=== PATIENT | female | born 1955 | race Caucasian/White ===

== ENCOUNTER 2018-08-10 17:59 | Inpatient (IN) | payer BC, OTHER ==
--- NOTE | 2018-08-10 18:22 | C.PDOC ---
History Of Present Illness Patient is a 63 year old female, with a PMHx of diverticulosis with prior perf s/p colectomy, who presents to the ED c/o recurrent LLQ pain since last last night. Patient states that the pain is localized. TM 100. Patient denies any nausea, vomiting, diarrhea, or BRB. RECUR LLQ PAIN SINCE LAST NIGHT. HO DIVERTICULOSIS W PRIOR PERF SP COLECTOMY. PAIN LOCALIZED CONSTANT. TM 100. NO NVD. NO BRB EXAM NONTOXIC ABD SOFT +SEVERE LLQ TEND NO RG REMAINDER NEG <Karen Byrne - Last Filed: 08/10/18 18:55> History Per: Patient History/Exam Limitations: no limitations Onset/Duration Of Symptoms: Days (1) Current Symptoms Are (Timing): Still Present Location Of Pain/Discomfort: LLQ Quality Of Discomfort: "Pain" Associated Symptoms: denies: Nausea, Vomiting, Diarrhea Recent travel outside of the [place]: No Additional History Per: Patient <Karen Byrne - Last Filed: 08/10/18 18:55> <Natalie Cortes - Last Filed: 08/10/18 22:41> Time Seen by Provider: 08/10/18 18:15 Chief Complaint (Nursing): Abdominal Pain Past Medical History Reviewed: Historical Data, Nursing Documentation, Vital Signs Vital Signs: Last Vital Signs Temp 100.4 F H 08/10/18 18:07 Pulse 116 H 08/10/18 18:07 Resp 18 08/10/18 18:07 BP 175/81 H 08/10/18 18:07 Pulse Ox 95 08/10/18 18:07 - Medical History PMH: HTN, Hypercholesterolemia Surgical History: No Surg Hx Family History: States: No Known Family Hx - Social History Hx Alcohol Use: No Hx Substance Use: No - Immunization History Hx Tetanus Toxoid Vaccination: Yes Hx Influenza Vaccination: Yes Hx Pneumococcal Vaccination: No <Karen Byrne - Last Filed: 08/10/18 18:55> Vital Signs: Last Vital Signs Temp 100.4 F H 08/10/18 18:07 Pulse 116 H 08/10/18 18:07 Resp 18 08/10/18 18:07 BP 170/81 H 08/10/18 18:40 Pulse Ox 95 08/10/18 18:56 <Natalie Cortes - Last Filed: 08/10/18 22:41> Review Of Systems Except As Marked, All Systems Reviewed And Found Negative. Gastrointestinal: Positive for: Abdominal Pain (LLQ pain ). Negative for: Nausea, Vomiting, Diarrhea, Hematochezia, Hematemesis <Karen Byrne - Last Filed: 08/10/18 18:55> Physical Exam - Physical Exam Appears: Non-toxic Skin: Warm, Dry Head: Atraumatic, Normacephalic Oral Mucosa: Moist Neck: Normal ROM, Supple Chest: Symmetrical, No Deformity Cardiovascular: Rhythm Regular, No Murmur Respiratory: Other (NARD) Gastrointestinal/Abdominal: Soft, Tenderness (+SEVERE LLQ TEND), No Guarding, No Rebound Extremity: Normal ROM Neurological/Psych: Oriented x3, Normal Speech, Normal Cognition <Karen Byrne - Last Filed: 08/10/18 18:55> ED Course And Treatment - Laboratory Results Result Diagrams: 08/10/18 18:35 08/10/18 18:35 O2 Sat by Pulse Oximetry: 95 (on RA) Pulse Ox Interpretation: Normal - Radiology CXR: Interpreted by Me CXR Interpretation: Yes: No Acute Disease Progress Note: Plan: CAT A&P. CXR. EKG. Labs. Urinalysis. Omnipaque 50ml PO. Morphine 2mg IVP. Zofran INJ 4mg IVP. IV Fluids <Karen Byrne - Last Filed: 08/10/18 18:55> - Laboratory Results Result Diagrams: 08/10/18 18:35 08/10/18 18:35 Lab Results: pO2 26 mm/Hg (30-55) L 08/10/18 20:58 VBG pH 7.43 (7.32-7.43) 08/10/18 20:58 VBG pCO2 42 mmHg (40-60) 08/10/18 20:58 VBG HCO3 26.1 mmol/L 08/10/18 20:58 VBG Total CO2 29.2 mmol/L (22-28) H 08/10/18 20:58 VBG O2 Sat (Calc) 47.3 % (40-65) 08/10/18 20:58 VBG Base Excess 3.2 mmol/L (0.0-2.0) H 08/10/18 20:58 VBG Potassium 3.3 mmol/L (3.6-5.2) L 08/10/18 20:58 Sodium 138.0 mmol/l (132-148) 08/10/18 20:58 Chloride 103.0 mmol/L (98-107) 08/10/18 20:58 Glucose 106 mg/dl (65-105) H 08/10/18 20:58 Lactate 1.3 mmol/L (0.7-2.1) 08/10/18 20:58 Total Bilirubin 0.7 mg/dL (0.2-1.3) 08/10/18 18:35 AST 85 U/L (14-36) H 08/10/18 18:35 ALT 84 U/L (9-52) H 08/10/18 18:35 Alkaline Phosphatase 128 U/L (38-126) H 08/10/18 18:35 Total Protein 7.6 g/dL (6.3-8.3) 08/10/18 18:35 Albumin 4.5 g/dL (3.5-5.0) 08/10/18 18:35 Globulin 3.1 gm/dL (2.2-3.9) 08/10/18 18:35 Albumin/Globulin Ratio 1.4 (1.0-2.1) 08/10/18 18:35 Lipase 59 U/L (23-300) 08/10/18 18:35 Urine Color Yellow (YELLOW) 08/10/18 18:35 Urine Clarity Hazy (Clear) 08/10/18 18:35 Urine pH 6.0 (5.0-8.0) 08/10/18 18:35 Ur Specific [place] 1.008 (1.003-1.030) 08/10/18 18:35 Urine Protein Negative mg/dL (NEGATIVE) 08/10/18 18:35 Urine Glucose (UA) Normal mg/dL (Normal) 08/10/18 18:35 Urine Ketones Negative mg/dL (NEGATIVE) 08/10/18 18:35 Urine Blood 3+ (NEGATIVE) H 08/10/18 18:35 Urine Nitrate Negative (NEGATIVE) 08/10/18 18:35 Urine Bilirubin Negative (NEGATIVE) 08/10/18 18:35 Urine Urobilinogen Normal mg/dL (0.2-1.0) 08/10/18 18:35 Ur Leukocyte Esterase 3+ [place]/uL (Negative) H 08/10/18 18:35 Urine WBC (Auto) 36 /hpf (0-5) H 08/10/18 18:35 Urine RBC (Auto) 15 /hpf (0-3) H 08/10/18 18:35 Ur Squamous Epith Cells 2 /hpf (0-5) 08/10/18 18:35 Urine Bacteria Few (<OCC) H 08/10/18 18:35 <Natalie Cortes - Last Filed: 08/10/18 22:41> Progress - Data Reviewed Data Reviewed: Lab, Diagnostic imaging, EKG, Old records <Karen Byrne - Last Filed: 08/10/18 18:55> Disposition - Disposition Disposition Time: 19:00 <Karen Byrne - Last Filed: 08/10/18 18:55> Discussed With : Jerry Ponce Comment: acceptd the pt on his service and took over the care at 10:40 PM Doctor Will See Patient In The: Hospital Counseled Patient/Family Regarding: Studies Performed, Diagnosis - POA Present On Arrival: Poor Glycemic Control <Natalie Cortes - Last Filed: 08/10/18 22:41> - Disposition Disposition: HOSPITALIZED Condition: GUARDED Forms: [employer] (Kazakh) - Clinical Impression Clinical Impression: Abdominal pain, Acute diverticulitis, Renal abscess, left - Scribe Statement The provider has reviewed the documentation as recorded by the Zeenatibchaz Ashley All medical record entries made by the Zeenatibe were at my direction and personally dictated by me. I have reviewed the chart and agree that the record accurately reflects my personal performance of the history, physical exam, medical decision making, and the department course for this patient. I have also personally directed, reviewed, and agree with the discharge instructions and disposition. <Karen Byrne - Last Filed: 08/10/18 18:55> Physician Patient Turnover Patient Signed Over To: Natalie Cortes Handoff Comments: fu VBG, ct, dispo <Karen Byrne - Last Filed: 08/10/18 18:55> Decision To Admit <Karen Byrne - Last Filed: 08/10/18 18:55> - Pt Status Changed To: Hospital Disposition Of: Observation - . Bed Request Type: Regular Admitting Physician: Jerry Ponce <Natalie Cortes - Last Filed: 08/10/18 22:41> - . Patient Diagnosis: Abdominal pain, Acute diverticulitis, Renal abscess, left
[2018-08-10] MEDS ORDERED: Sodium Chloride 0.9% 1,000 ML IV ONE (18:23)
[2018-08-10] MEDS ORDERED: Iohexol 240 (50 ml) PO STA (18:23)
[2018-08-10] MEDS ORDERED: Iohexol 240 (50 ml) ONE (18:41)
[2018-08-10] MEDS ORDERED: Sodium Chloride 0.9% 1,000 ML ONE (18:41)
[2018-08-10 18:45] LABS: BASO # 0.1 K/uL (0.0-0.2); BASO % 0.5 % (0.0-2.0); EOS % 0.2 % (0.0-4.0); LYMPH % 6.7 % (20.0-40.0); MEAN CELL VOLUME 92.8 fL (81.0-99.0); MEAN CORPUSCULAR HEMOGLOBIN 31.2 pg (27.0-31.0); MEAN CORPUSCULAR HGB CONC 33.6 g/dL (33.0-37.0); MEAN PLATELET VOLUME 7.5 fL (7.2-11.7); MONO # 1.5 K/uL (0.0-0.8); MONO % 10.1 % (0.0-10.0); NEUT # 12.3 K/uL (1.8-7.0); NEUT % 82.5 % (50.0-75.0); NRBC % 0.1 % (0.0-2.0); PLATELET COUNT 273 K/uL (130-400); RBC 4.82 Mil/uL (3.80-5.20); RED CELL DISTRIBUTION WIDTH 12.9 % (11.5-14.5); WHITE BLOOD COUNT 14.9 K/uL (4.8-10.8)
[2018-08-10 18:52] LABS: ALB/GLOB RATIO 1.4 (1.0-2.1); ALBUMIN 4.5 g/dL (3.5-5.0); ALT/SGPT 84 U/L (9-52); AST/SGOT 85 U/L (14-36); BLOOD UREA NITROGEN 15 mg/dL (7-17); CALCIUM 9.4 mg/dl (8.6-10.4); GFR NON-AFRICAN AMERICAN > 60; LIPASE 59 U/L (23-300)
[2018-08-10 18:54] LABS: SQUAMOUS EPITHIAL 2 /hpf (0-5); URINE BACTERIA FEW (<OCC); URINE BILIRUBIN NEGATIVE (NEGATIVE); URINE BLOOD 3+ (NEGATIVE); URINE COLOR Yellow (YELLOW); URINE GLUCOSE (UA) NORMAL (Normal); URINE LEUKOCYTE ESTERASE 3+ Leu/uL (Negative); URINE PROTEIN NEGATIVE (NEGATIVE); URINE UROBILINOGEN NORMAL mg/dL (0.2-1.0)
[2018-08-10] MEDS ORDERED: Piperacillin/Tazobact 3.375 gm 100 ML IV STA (18:54)
[2018-08-10 18:56] LABS: URINE CLARITY HAZY (Clear)
[2018-08-10 19:45] LABS: BANDS 2 % (0-2); LYMPHOCYTE 10 % (20-40); MONOCYTE 10 % (0-10); NEUTROPHIL 78 % (50-75); PLATELET ESTIMATE NORMAL (NORMAL); TOTAL CELLS COUNTED 100
[2018-08-10] MEDS ORDERED: Iodixanol 320 MG/ML 100 ML BOTTLE IV ONE (20:18)
[2018-08-10] MEDS ORDERED: Piperacillin/Tazobact 3.375 gm 100 ML IVPB ONE (20:29)
[2018-08-10 21:05] LABS: VENOUS BLOOD GAS BASE EXCESS 3.2 mmol/L (0.0-2.0); VENOUS BLOOD GAS PCO2 42 mmHg (40-60); VENOUS BLOOD GAS PO2 26 mm/Hg (30-55); VENOUS BLOOD PH 7.43 (7.32-7.43)
[2018-08-10] MEDS ORDERED: metroNIDAZOLE IV 500 mg/100 ml 500 MG/100 ML BAG IVPB SCH (22:15)
--- NOTE | 2018-08-10 22:27 | RAD ---
HISTORY: abd pain COMPARISON: None available. TECHNIQUE: Chest, one view. FINDINGS: LUNGS: Increased lucencies especially within the bilateral upper lung earl compatible with underlying emphysema. Please note that chest x-ray has limited sensitivity for the detection of pulmonary masses. PLEURA: No significant pleural effusion identified. No definite pneumothorax . CARDIOVASCULAR: Heart size appears within normal limits. Atherosclerotic calcifications of the aorta. OSSEOUS STRUCTURES: Degenerative changes. VISUALIZED UPPER ABDOMEN: Unremarkable. OTHER FINDINGS: None. IMPRESSION: Emphysematous changes.
[2018-08-10] MEDS ORDERED: HYDROmorphone 1 mg/ml ISec IVP PRN (22:53)
[2018-08-10] MEDS: Piperacill/Tazo 3.375gm in Dex 3.375 GM/50 ML BAG IVPB SCH (22:54)
[2018-08-10] MEDS ORDERED: metroNIDAZOLE IV 500 mg/100 ml 500 MG/100 ML BAG IVPB STA (22:55)
[2018-08-10] MEDS: metroNIDAZOLE IV 500 mg/100 ml 500 MG/100 ML BAG IVPB SCH (22:56)
[2018-08-10] MEDS ORDERED: metroNIDAZOLE IV 500 mg/100 ml 500 MG/100 ML BAG ONE (23:03)
[2018-08-10] MEDS: Dextrose 5%/0.45% NS 1,000 ML IV SCH (23:24)
[2018-08-11] MEDS ORDERED: Potassium Chloride 20 mEq ER Tab PO ONE ×2 (00:15→01:23)
[2018-08-11] MEDS: Piperacill/Tazo 3.375gm in Dex 3.375 GM/50 ML BAG IVPB SCH ×4 (05:39→22:14)
[2018-08-11] MEDS: metroNIDAZOLE IV 500 mg/100 ml 500 MG/100 ML BAG IVPB SCH ×3 (06:12→22:15)
[2018-08-11 07:45] LABS: BASO % 0.4 % (0.0-2.0); EOS # 0.1 K/uL (0.0-0.7); EOS % 0.5 % (0.0-4.0); LYMPH # 1.4 K/uL (1.0-4.3); LYMPH % 10.7 % (20.0-40.0); MEAN CELL VOLUME 94.1 fL (81.0-99.0); MEAN CORPUSCULAR HEMOGLOBIN 32.3 pg (27.0-31.0); MEAN CORPUSCULAR HGB CONC 34.4 g/dL (33.0-37.0); MEAN PLATELET VOLUME 7.6 fL (7.2-11.7); MONO % 7.2 % (0.0-10.0); NEUT # 10.9 K/uL (1.8-7.0); NEUT % 81.2 % (50.0-75.0); RBC 4.02 Mil/uL (3.80-5.20); RED CELL DISTRIBUTION WIDTH 13.3 % (11.5-14.5); WHITE BLOOD COUNT 13.4 K/uL (4.8-10.8)
[2018-08-11] MEDS: Dextrose 5%/0.45% NS 1,000 ML IV SCH ×2 (08:14→19:00)
[2018-08-11 08:20] LABS: ALB/GLOB RATIO 1.3 (1.0-2.1); ALBUMIN 3.4 g/dL (3.5-5.0); ALT/SGPT 67 U/L (9-52); AST/SGOT 54 U/L (14-36); BLOOD UREA NITROGEN 10 mg/dL (7-17); CALCIUM 8.2 mg/dl (8.6-10.4); GFR NON-AFRICAN AMERICAN > 60
--- NOTE | 2018-08-11 08:48 | CT ---
Date of service: 08/10/2018 PROCEDURE: CT Abdomen and Pelvis with contrast HISTORY: Abdominal pain. COMPARISON: 11/14/2012 TECHNIQUE: Multiple contiguous axial images were performed through the abdomen and pelvis with the use of intravenous contrast. Subsequently, sagittal and coronal reformatted images were obtained. Radiation dose: Total exam DLP = 797.46 mGy-cm. This CT exam was performed using one or more of the following dose reduction techniques: Automated exposure control, adjustment of the mA and/or kV according to patient size, and/or use of iterative reconstruction technique. FINDINGS: LOWER THORAX: Mild focal nodular consolidation within the right middle lobe. Mild scattered atelectasis within the remainder of the visualized lung earl. LIVER: Unremarkable. No gross lesion or ductal dilatation. GALLBLADDER AND BILE DUCTS: Unremarkable. PANCREAS: Unremarkable. No gross lesion or ductal dilatation. SPLEEN: Unremarkable. ADRENALS: Mild nodularity of the adrenal glands. KIDNEYS AND URETERS: Right kidney: Mild fullness of the right renal collecting system. Left Kidney: Again identified is an upper pole complex mixed attenuation solid/cystic lesion in the left kidney measuring 3.5 x 1.8 centimeters previously measuring 3.5 x 1.7 cm centimeters. Additional upper pole hypoechoic 1.2 centimeter lesion demonstrating central calcification also not significantly changed since the prior study. VASCULATURE: Atherosclerotic calcification and plaque within the aorta. BOWEL: Colonic diverticulosis. Focal thickening of the distal descending/proximal sigmoid colon with adjacent fat stranding and fluid suggestive for an acute diverticulitis versus focal colitis. Post treatment interval follow-up is recommended to ensure resolution and exclude underlying lesion. There may be a few foci of contained micro perforation at that level versus prominent diverticuli. No gross or discrete abscess collection at this juncture. Continued interval follow-up. Clinical correlation. APPENDIX: Normal appendix. PERITONEUM: Unremarkable. No free fluid. No free air. LYMPH NODES: Few shotty para-aortic and inguinal lymph nodes. Few shotty mesenteric lymph nodes. BLADDER: Unremarkable. REPRODUCTIVE: Multi fibroid uterus with multiple enhancing lesions in the uterus. Prominence of the pelvic veins which may represent a pelvic congestion syndrome. BONES: Degenerative changes in the spine. Sclerosis at the level of the right SI joint. Anterolisthesis of L4 on L5 with associated pars defects. Posterior disc osteophyte complexes seen throughout the thoracic and lumbar spine. OTHER FINDINGS: None. IMPRESSION: 1. Colonic diverticulosis. Focal thickening of the distal descending/proximal sigmoid colon with adjacent fat stranding and fluid suggestive for an acute diverticulitis versus focal colitis. Post treatment interval follow-up is recommended to ensure resolution and exclude underlying lesion. There may be a few questionable foci of contained micro perforation at that level versus prominent diverticuli. No gross or discrete abscess collection at this juncture. Continued interval follow-up. Clinical correlation. 2. Complex indeterminate cystic lesions seen within the left kidney as described above. Further evaluation with multiphasic contrast enhanced CT or MR may be helpful for further evaluation if clinically indicated. 3. Multi fibroid uterus with multiple enhancing lesions in the uterus. Prominence of the pelvic veins which may represent a pelvic congestion syndrome. Additional findings as above. A preliminary report was generated at 10 p.m. on 08/10/[address] Jerry Regalado from [employer].
--- NOTE | 2018-08-11 14:05 | CP.PCM.HP ---
Past Patient History - Past Social History Smoking Status: Never Smoked - CARDIAC Hx Hypercholesterolemia: Yes Hx Hypertension: Yes - PSYCHIATRIC Hx Substance Use: No - SURGICAL HISTORY Hx Surgeries: Yes Other/Comment: PERFORATED DUODENUM - ANESTHESIA Hx Anesthesia: Yes Hx Anesthesia Reactions: No Hx Malignant Hyperthermia: No Meds Allergies/Adverse Reactions: Allergies Allergy/AdvReac Type Severity Reaction Status Date / Time No Known Allergies Allergy Unverified 08/10/18 18:11 Results - Vital Signs Recent Vital Signs: Last Vital Signs Temp 98.5 F 08/11/18 08:01 Pulse 79 08/11/18 08:01 Resp 20 08/11/18 08:01 BP 104/63 08/11/18 08:01 Pulse Ox 97 08/11/18 08:01 - Labs Result Diagrams: 08/11/18 07:26 08/11/18 07:26 Labs: Laboratory Results - last 24 hr 08/10/18 08/10/18 08/10/18 18:35 18:35 18:35 WBC 14.9 H RBC 4.82 Hgb 15.0 Hct 44.7 MCV 92.8 MCH 31.2 H MCHC 33.6 RDW 12.9 Plt Count 273 MPV 7.5 Neut % (Auto) 82.5 H Lymph % (Auto) 6.7 L [place] % (Auto) 10.1 H Eos % (Auto) 0.2 Baso % (Auto) 0.5 Neut # (Auto) 12.3 H Lymph # (Auto) 1.0 [place] # (Auto) 1.5 H Eos # (Auto) 0.0 Baso # (Auto) 0.1 Neutrophils % (Manual) 78 H Band Neutrophils % 2 Lymphocytes % (Manual) 10 L Monocytes % (Manual) 10 Platelet Estimate Normal pO2 VBG pH VBG pCO2 VBG HCO3 VBG Total CO2 VBG O2 Sat (Calc) VBG Base Excess VBG Potassium Glucose Lactate Sodium 134 Potassium 3.3 L Chloride 98 Carbon Dioxide 28 Anion Gap 12 BUN 15 Creatinine 0.7 Est GFR ( Amer) > 60 Est GFR (Non-Af Amer) > 60 Random Glucose 117 H Calcium 9.4 Total Bilirubin 0.7 AST 85 H ALT 84 H Alkaline Phosphatase 128 H Total Protein 7.6 Albumin 4.5 Globulin 3.1 Albumin/Globulin Ratio 1.4 Lipase 59 Venous Blood Potassium Urine Color Yellow Urine Clarity Hazy Urine pH 6.0 Ur Specific [place] 1.008 Urine Protein Negative Urine Glucose (UA) Normal Urine Ketones Negative Urine Blood 3+ H Urine Nitrate Negative Urine Bilirubin Negative Urine Urobilinogen Normal Ur Leukocyte Esterase 3+ H Urine WBC (Auto) 36 H Urine RBC (Auto) 15 H Ur Squamous Epith Cells 2 Urine Bacteria Few H 08/10/18 08/11/18 08/11/18 20:58 07:26 07:26 WBC 13.4 H RBC 4.02 Hgb 13.0 D Hct 37.9 MCV 94.1 MCH 32.3 H MCHC 34.4 RDW 13.3 Plt Count 249 MPV 7.6 Neut % (Auto) 81.2 H Lymph % (Auto) 10.7 L [place] % (Auto) 7.2 Eos % (Auto) 0.5 Baso % (Auto) 0.4 Neut # (Auto) 10.9 H Lymph # (Auto) 1.4 [place] # (Auto) 1.0 H Eos # (Auto) 0.1 Baso # (Auto) 0.0 Neutrophils % (Manual) Band Neutrophils % Lymphocytes % (Manual) Monocytes % (Manual) Platelet Estimate pO2 26 L VBG pH 7.43 VBG pCO2 42 VBG HCO3 26.1 VBG Total CO2 29.2 H VBG O2 Sat (Calc) 47.3 VBG Base Excess 3.2 H VBG Potassium 3.3 L Glucose 106 H Lactate 1.3 Sodium 138.0 135 Potassium 3.6 Chloride 103.0 103 Carbon Dioxide 26 Anion Gap 10 BUN 10 Creatinine 0.7 Est GFR ( Amer) > 60 Est GFR (Non-Af Amer) > 60 Random Glucose 119 H Calcium 8.2 L Total Bilirubin 1.3 AST 54 H D ALT 67 H D Alkaline Phosphatase 90 Total Protein 6.0 L Albumin 3.4 L D Globulin 2.6 Albumin/Globulin Ratio 1.3 Lipase Venous Blood Potassium 3.3 L Urine Color Urine Clarity Urine pH Ur Specific [place] Urine Protein Urine Glucose (UA) Urine Ketones Urine Blood Urine Nitrate Urine Bilirubin Urine Urobilinogen Ur Leukocyte Esterase Urine WBC (Auto) Urine RBC (Auto) Ur Squamous Epith Cells Urine Bacteria
--- NOTE | 2018-08-11 14:18 | CP.PCM.HP ---
History of Present Illness - History of Present Illness History of Present Illness: 63 years old [place] female was sent to the ED by her PMD, Dr Chow, because of a severe left lower abdominal pain with mild fever for day. She denies any nausea, vomiting diarrhea. She is known to have a history of hypertension on [place] 50 mg PO qd, and diverticulosis of the colon. She had duodenal surgery many years ago for an unknown cause. Last night she vomited coffee-ground materials, and this morning, she developed diarrhea. A CT scan of the abdomen and pelvis reveals a mass of the left renal upper pole and diverticulitis of the sigmoid colon. She was started on Zosyn and Flagyl IV. Today her abdominal pain improves slightly. Present on Admission - Present on Admission Any Indicators Present on Admission: No Review of Systems - Gastrointestinal Gastrointestinal: Abdominal Pain, Diarrhea, Vomiting Past Patient History - Past Social History Smoking Status: Never Smoked Alcohol: None Home Situation {Lives}: With Family Domestic Violence: Negative - CARDIAC Hx Hypercholesterolemia: Yes Hx Hypertension: Yes - GASTROINTESTINAL Hx Bowel Surgery: Yes - PSYCHIATRIC Hx Substance Use: No - SURGICAL HISTORY Hx Surgeries: Yes Other/Comment: PERFORATED DUODENUM - ANESTHESIA Hx Anesthesia: Yes Hx Anesthesia Reactions: No Hx Malignant Hyperthermia: No Meds Allergies/Adverse Reactions: Allergies Allergy/AdvReac Type Severity Reaction Status Date / Time No Known Allergies Allergy Unverified 08/10/18 18:11 Physical Exam - Constitutional Appears: Well, No Acute Distress - Head Exam Head Exam: NORMAL INSPECTION - Eye Exam Eye Exam: Normal appearance Pupil Exam: NORMAL ACCOMODATION - ENT Exam ENT Exam: Normal Exam - Neck Exam Neck exam: Positive for: Normal Inspection - Respiratory Exam Respiratory Exam: Clear to Auscultation Bilateral, NORMAL BREATHING PATTERN - Cardiovascular Exam Cardiovascular Exam: REGULAR RHYTHM - GI/Abdominal Exam GI & Abdominal Exam: Normal Bowel Sounds, Soft Additional comments: Tender LLL abdomen. - Rectal Exam Rectal Exam: Deferred - Exam Exam: NORMAL INSPECTION - Back Exam Back exam: NORMAL INSPECTION - Neurological Exam Neurological exam: Alert, Normal Gait, Oriented x3 - Psychiatric Exam Psychiatric exam: Anxious - Skin Skin Exam: Dry, Intact, Normal Color, Warm Results - Vital Signs Recent Vital Signs: Last Vital Signs Temp 98.5 F 08/11/18 08:01 Pulse 79 08/11/18 08:01 Resp 20 04/23/19 08:01 BP 104/63 08/11/18 08:01 Pulse Ox 97 08/11/18 08:01 - Labs Result Diagrams: 08/11/18 07:26 08/11/18 07:26 Labs: Laboratory Results - last 24 hr 08/10/18 08/10/18 08/10/18 18:35 18:35 18:35 WBC 14.9 H RBC 4.82 Hgb 15.0 Hct 44.7 MCV 92.8 MCH 31.2 H MCHC 33.6 RDW 12.9 Plt Count 273 MPV 7.5 Neut % (Auto) 82.5 H Lymph % (Auto) 6.7 L [place] % (Auto) 10.1 H Eos % (Auto) 0.2 Baso % (Auto) 0.5 Neut # (Auto) 12.3 H Lymph # (Auto) 1.0 [place] # (Auto) 1.5 H Eos # (Auto) 0.0 Baso # (Auto) 0.1 Neutrophils % (Manual) 78 H Band Neutrophils % 2 Lymphocytes % (Manual) 10 L Monocytes % (Manual) 10 Platelet Estimate Normal pO2 VBG pH VBG pCO2 VBG HCO3 VBG Total CO2 VBG O2 Sat (Calc) VBG Base Excess VBG Potassium Glucose Lactate Sodium 134 Potassium 3.3 L Chloride 98 Carbon Dioxide 28 Anion Gap 12 BUN 15 Creatinine 0.7 Est GFR ( Amer) > 60 Est GFR (Non-Af Amer) > 60 Random Glucose 117 H Calcium 9.4 Total Bilirubin 0.7 AST 85 H ALT 84 H Alkaline Phosphatase 128 H Total Protein 7.6 Albumin 4.5 Globulin 3.1 Albumin/Globulin Ratio 1.4 Lipase 59 Venous Blood Potassium Urine Color Yellow Urine Clarity Hazy Urine pH 6.0 Ur Specific [place] 1.008 Urine Protein Negative Urine Glucose (UA) Normal Urine Ketones Negative Urine Blood 3+ H Urine Nitrate Negative Urine Bilirubin Negative Urine Urobilinogen Normal Ur Leukocyte Esterase 3+ H Urine WBC (Auto) 36 H Urine RBC (Auto) 15 H Ur Squamous Epith Cells 2 Urine Bacteria Few H 08/10/18 08/11/18 08/11/18 20:58 07:26 07:26 WBC 13.4 H RBC 4.02 Hgb 13.0 D Hct 37.9 MCV 94.1 MCH 32.3 H MCHC 34.4 RDW 13.3 Plt Count 249 MPV 7.6 Neut % (Auto) 81.2 H Lymph % (Auto) 10.7 L [place] % (Auto) 7.2 Eos % (Auto) 0.5 Baso % (Auto) 0.4 Neut # (Auto) 10.9 H Lymph # (Auto) 1.4 [place] # (Auto) 1.0 H Eos # (Auto) 0.1 Baso # (Auto) 0.0 Neutrophils % (Manual) Band Neutrophils % Lymphocytes % (Manual) Monocytes % (Manual) Platelet Estimate pO2 26 L VBG pH 7.43 VBG pCO2 42 VBG HCO3 26.1 VBG Total CO2 29.2 H VBG O2 Sat (Calc) 47.3 VBG Base Excess 3.2 H VBG Potassium 3.3 L Glucose 106 H Lactate 1.3 Sodium 138.0 135 Potassium 3.6 Chloride 103.0 103 Carbon Dioxide 26 Anion Gap 10 BUN 10 Creatinine 0.7 Est GFR ( Amer) > 60 Est GFR (Non-Af Amer) > 60 Random Glucose 119 H Calcium 8.2 L Total Bilirubin 1.3 AST 54 H D ALT 67 H D Alkaline Phosphatase 90 Total Protein 6.0 L Albumin 3.4 L D Globulin 2.6 Albumin/Globulin Ratio 1.3 Lipase Venous Blood Potassium 3.3 L Urine Color Urine Clarity Urine pH Ur Specific [place] Urine Protein Urine Glucose (UA) Urine Ketones Urine Blood Urine Nitrate Urine Bilirubin Urine Urobilinogen Ur Leukocyte Esterase Urine WBC (Auto) Urine RBC (Auto) Ur Squamous Epith Cells Urine Bacteria Assessment & Plan (1) Acute diverticulitis Assessment and Plan: To continue IV antibiotics. Status: Acute (2) Left renal mass Assessment and Plan: Will repeat CT scan of the abdomen. May need biopsy of the renal mass. Status: Acute (3) Hematuria Assessment and Plan: To order urine culture. Status: Acute Decision To Admit - Pt Status Changed To: Hospital Disposition Of: Inpatient - Admit Certification Admit to Inpatient:: After my assessment, the patient will require hospitalization for at least two midnights. This is because of the severity of symptoms shown, intensity of services needed, and/or the medical risk in this patient being treated as an outpatient. - InPatient: Physician Admission Certification:: After my assessments, the patient requires hospitalization for at least 2 midnights. - . Bed Request Type: Regular Admitting Physician: Jerry Ponce
[2018-08-11 17:49] LABS: INR 1.2; PROTHROMBIN TIME 12.7 SECONDS (9.7-12.2)
[2018-08-11 18:23] LABS: HEPATITIS B SURFACE AG Negative (NEGATIVE)
[2018-08-11 18:29] LABS: HEPATITIS A IGM NEGATIVE (NEGATIVE); HEPATITIS B CORE AB NEGATIVE (NEGATIVE)
[2018-08-11 18:41] LABS: HEPATITIS C ANTIBODY NEGATIVE (NEGATIVE)
--- NOTE | 2018-08-12 03:14 | CARD ---
APPROVED REPORT Date of service: 08/10/2018 EKG Measurement Heart [id number] <Conclusion> Normal sinus rhythm Possible Left atrial enlargement Borderline ECG
[2018-08-12] MEDS: Piperacill/Tazo 3.375gm in Dex 3.375 GM/50 ML BAG IVPB SCH ×4 (04:30→22:00)
[2018-08-12] MEDS: Dextrose 5%/0.45% NS 1,000 ML IV SCH ×3 (05:58→17:06)
[2018-08-12] MEDS: metroNIDAZOLE IV 500 mg/100 ml 500 MG/100 ML BAG IVPB SCH ×3 (06:00→22:34)
[2018-08-12 07:19] LABS: BASO % 0.3 % (0.0-2.0); EOS % 0.4 % (0.0-4.0); HEMOGLOBIN 12.9 g/dL (11.0-16.0); LYMPH # 0.7 K/uL (1.0-4.3); LYMPH % 7.8 % (20.0-40.0); MEAN CORPUSCULAR HEMOGLOBIN 32.4 pg (27.0-31.0); MEAN CORPUSCULAR HGB CONC 34.4 g/dL (33.0-37.0); MEAN PLATELET VOLUME 7.7 fL (7.2-11.7); MONO # 0.4 K/uL (0.0-0.8); MONO % 4.7 % (0.0-10.0); NEUT # 7.4 K/uL (1.8-7.0); NEUT % 86.8 % (50.0-75.0); NRBC % 0.1 % (0.0-2.0); PLATELET COUNT 244 K/uL (130-400); RBC 3.99 Mil/uL (3.80-5.20); RED CELL DISTRIBUTION WIDTH 13.5 % (11.5-14.5); WHITE BLOOD COUNT 8.5 K/uL (4.8-10.8)
[2018-08-12 07:52] LABS: ALB/GLOB RATIO 1.2 (1.0-2.1); ALBUMIN 3.5 g/dL (3.5-5.0); ALT/SGPT 63 U/L (9-52); AST/SGOT 48 U/L (14-36); BLOOD UREA NITROGEN 5 mg/dL (7-17); CALCIUM 8.3 mg/dl (8.6-10.4); GFR NON-AFRICAN AMERICAN > 60
[2018-08-12] MEDS ORDERED: Bisacodyl 5mg EC Tab PO ONE (10:00)
[2018-08-12 10:03] LABS: LYMPHOCYTE 12 % (20-40); MONOCYTE 3 % (0-10); NEUTROPHIL 85 % (50-75); PLATELET ESTIMATE NORMAL (NORMAL); TOTAL CELLS COUNTED 100
--- NOTE | 2018-08-12 12:43 | PN ---
DATE: 08/12/2018 LOCATION: 369, bed A. SUBJECTIVE: A 63-year-old female seen and examined initially for GI consultation on 08/11/2018, reexamined again today without significant clinical changes or reported active bleeding, but with intermittent period of abdominal pain with mild nausea and dyspepsia. The entire chart is reviewed, including the most recent lab and radiology study results. Today's lab results still pending. However, the patient still has leukocytosis with normal PT and PTT, normal platelet count, but abnormal ABGs with blood glucose level 119, calcium 8.2 with abnormal liver function test for whatever. Hepatitis profile was ordered and reported to be negative as well as monospot. The most recently done CAT scan of the abdomen and pelvis, official report is seen, indicative of diverticulosis with possible diverticulitis. PHYSICAL EXAMINATION: GENERAL: A 63-year-old female, awake, alert, oriented. VITAL SIGNS: Afebrile with pulse of 70, respiratory rate 20 to 22, blood pressure 116/64. HEENT: Pale, dry oral mucous membrane. Nonicteric sclerae. LUNGS: Few scattered crepitation. Decreased air entry at bases. HEART: Positive S1 and S2. ABDOMEN: Soft with mild generalized tenderness. No mass or organomegaly. No rebound tenderness or guarding. EXTREMITIES: Without significant clubbing, cyanosis, or edema. NEUROLOGIC: No reported new neurological deficits, sensory or motor. IMPRESSION: 1. Diverticulosis with acute diverticulitis. 2. Abnormal CAT scan of the abdomen and pelvis. 3. Known history of hyperlipidemia with hypertension. 4. Leukocytosis, secondary to above most likely. SUGGESTIONS: 1. Continue current management. 2. Due to the abnormal CAT scan of the abdomen, RN HEART to be considered. 3. The patient will need colonoscopy only when she is more stable clinically. 4. Proton pump inhibitors. 5. Her abnormal liver function test most likely refractory secondary to infectious process. 6. Reglan IV. Vancomycin p.o. Further recommendation to follow. Julio Holt MD
--- NOTE | 2018-08-12 12:45 | CON ---
DATE: 08/11/2018 HISTORY OF PRESENT ILLNESS: I was called for GI consultation by the admitting medical team. The patient is seen and fully examined in the floor with the admitting medical staff as well as the ordering medical staff at bedside. The entire chart is reviewed including but not limited to the most recent lab and radiology study results, current and previous medication list, current and previous medical events. Case discussed immediately with medical team on 08/11/2018 after my physical examination. This is a 63-year-old female who was admitted to the hospital with multiple complaints including but not limited to severe abdominal pain in the left lower quadrant area with postprandial abdominal distention, reported to have hematemesis of some coffee-ground material in the emergency room at the time of her admission, but no reported chills or fever and no reported chest pain, palpitation or significant shortness of breath. No tremors. PAST MEDICAL HISTORY: Including but not limited to, 1. Hyperlipidemia. 2. Hypertension. 3. Peptic ulcer disease. 4. Reported history of diverticulosis with what reported to be as partial colon resection before. PHYSICAL EXAMINATION: GENERAL: A 63-year-old female. VITAL SIGNS: Afebrile with pulse of 80, respiratory rate 20-22, blood pressure 118/66. HEENT: Showed pale, dry oral mucous membrane. Nonicteric sclerae. LUNGS: Few scattered crepitation. Decreased air entry at bases. HEART: Positive S1 and S2. ABDOMEN: Soft. Bowel sounds are present. No mass or organomegaly. No rebound tenderness or guarding. EXTREMITIES: Without significant clubbing, cyanosis or edema. No reported new neurological deficit, sensory or motor. On record, the patient had mid epigastric tenderness as well as left lower quadrant tenderness with mild abdominal distention. LABORATORY DATA: The most recent lab results after the time of the admission showed of 13.4, normal hemoglobin and hematocrit with normal platelet count with abnormal ABGs, but potassium 3.3, blood glucose level of 119 with calcium 8.2 with AST 54, ALT 67, albumin 3.24. CAT scan of the abdomen and pelvis was performed, report is seen. IMPRESSION: 1. Diverticulosis with recurrent diverticulitis, with what reported as possible partial colon resection before. 2. Re-exacerbation of peptic ulcer disease with hematemesis, coffee-ground material to rule out gastric versus duodenal ulcer. 3. Known history of hypertension with hyperlipidemia. 4. Hyperglycemia. 5. Malnutrition with hypoalbuminemia. 6. Abnormal liver function test to rule out viral hepatitis versus increased liver function tests secondary to the infectious process. SUGGESTIONS: 1. Agree with your plan. 2. Add vancomycin p.o. 3. Reglan IV. 4. Proton pump inhibitors. 5. Hepatitis profile. 6. Cancer markers. 7. Upper endoscopy when the patient is more stable clinically, to be followed by colonoscopy only if the patient is stable clinically, otherwise to be done as an outpatient. Further recommendation to follow. Julio Holt MD
[2018-08-12] MEDS ORDERED: Magnesium Citrate Oral SOL (300 ml) PO ONE (14:00)
--- NOTE | 2018-08-12 22:32 | CP.PCM.PN ---
Subjective - Date & Time of Evaluation Date of Evaluation: 08/12/18 Time of Evaluation: 12:30 - Subjective Subjective: Patient has less abdominal pain. Afebrile. Vomitted once this AM after receiving Dilaudid IV. Seen by Dr Ferrari. For a colonoscopy in AM. Objective - Vital Signs/Intake and Output Vital Signs (last 24 hours): Temp Pulse Resp BP Pulse Ox 98.0 F 74 20 122/69 98 08/12/18 16:12 08/12/18 16:12 08/12/18 16:12 08/12/18 16:12 08/12/18 16:12 Intake and Output: 08/12/18 08/13/18 18:59 06:59 Intake Total 800 Balance 800 - Medications Medications: Current Medications Acetaminophen (Tylenol 325mg Tab) 650 mg PO Q6 PRN PRN Reason: Headache Last Admin: 08/12/18 08:39 Dose: 650 mg Hydromorphone HCl (Dilaudid) 1 mg IVP Q4H PRN PRN Reason: Pain, moderate (4-7) Last Admin: 08/12/18 02:59 Dose: 1 mg Metronidazole (Flagyl) 500 mg in 100 mls @ 100 mls/hr IVPB Q8H [facility]; Protocol Last Admin: 08/12/18 14:24 Dose: 100 mls/hr Piperacillin Sod/Tazobactam Sod (Zosyn 3.375 Gm Iv Premix) 3.375 gm in 50 mls @ 100 mls/hr IVPB Q6H [facility]; Protocol Last Admin: 08/12/18 17:07 Dose: 100 mls/hr Dextrose/Sodium Chloride (Dextrose 5%/0.45% Ns 1000 Ml) 1,000 mls @ 100 mls/hr IV .Q10H [facility] Last Admin: 08/12/18 17:06 Dose: 100 mls/hr Pantoprazole Sodium (Protonix Inj) 40 mg IVP DAILY [facility] Last Admin: 08/12/18 09:48 Dose: 40 mg Pneumococcal Polyvalent Vaccine (Pneumovax 23 Vaccine) 0.5 ml IM .ONCE ONE Stop: 08/13/18 10:01 - Labs Labs: 08/12/18 07:10 08/12/18 07:10 PT 12.7 SECONDS (9.7-12.2) H 08/11/18 17:30 INR 1.2 08/11/18 17:30 APTT 33.0 SECONDS (21-34) 08/11/18 17:30 - Constitutional Appears: Well, Non-toxic, No Acute Distress - Head Exam Head Exam: NORMAL INSPECTION - Eye Exam Eye Exam: Normal appearance Pupil Exam: NORMAL ACCOMODATION - ENT Exam ENT Exam: Normal Exam - Neck Exam Neck Exam: Normal Inspection - Respiratory Exam Respiratory Exam: Clear to Ausculation Bilateral - Cardiovascular Exam Cardiovascular Exam: REGULAR RHYTHM - GI/Abdominal Exam GI & Abdominal Exam: Soft, Hypoactive Bowel Sounds Additional comments: Mild tenderness of the LLQ. - Rectal Exam Rectal Exam: Deferred - Extremities Exam Extremities Exam: Normal Inspection - Back Exam Back Exam: NORMAL INSPECTION - Neurological Exam Neurological Exam: Alert, Awake, Normal Gait, Oriented x3 - Psychiatric Exam Psychiatric exam: Anxious - Skin Skin Exam: Dry, Intact, Normal Color, Warm Assessment and Plan (1) Acute diverticulitis Assessment & Plan: On IV antibiotics, less abdominal pain. For a colonoscopy in AM. Status: Acute (2) Left renal mass Assessment & Plan: Will repeat CT scan of the abdomen after GI work-up done. Status: Acute (3) Hematuria Assessment & Plan: Awaiting urine culture result Status: Acute
[2018-08-13] MEDS: Dextrose 5%/0.45% NS 1,000 ML IV SCH ×3 (01:00→22:45)
[2018-08-13] MEDS: Piperacill/Tazo 3.375gm in Dex 3.375 GM/50 ML BAG IVPB SCH ×4 (04:00→22:42)
[2018-08-13] MEDS: metroNIDAZOLE IV 500 mg/100 ml 500 MG/100 ML BAG IVPB SCH ×3 (06:00→22:12)
[2018-08-13 08:06] LABS: BASO # 0.1 K/uL (0.0-0.2); BASO % 0.7 % (0.0-2.0); EOS # 0.1 K/uL (0.0-0.7); EOS % 1.3 % (0.0-4.0); HEMOGLOBIN 13.6 g/dL (11.0-16.0); LYMPH % 22.5 % (20.0-40.0); MEAN CELL VOLUME 93.8 fL (81.0-99.0); MEAN CORPUSCULAR HEMOGLOBIN 32.2 pg (27.0-31.0); MEAN CORPUSCULAR HGB CONC 34.4 g/dL (33.0-37.0); MEAN PLATELET VOLUME 7.7 fL (7.2-11.7); MONO # 0.7 K/uL (0.0-0.8); MONO % 8.3 % (0.0-10.0); NEUT % 67.2 % (50.0-75.0); NRBC % 0.1 % (0.0-2.0); RBC 4.23 Mil/uL (3.80-5.20); RED CELL DISTRIBUTION WIDTH 13.4 % (11.5-14.5); WHITE BLOOD COUNT 8.9 K/uL (4.8-10.8)
[2018-08-13 08:38] LABS: ALB/GLOB RATIO 1.2 (1.0-2.1); ALBUMIN 3.6 g/dL (3.5-5.0); ALT/SGPT 56 U/L (9-52); AST/SGOT 35 U/L (14-36); BLOOD UREA NITROGEN 5 mg/dL (7-17); CALCIUM 8.8 mg/dl (8.6-10.4); GFR NON-AFRICAN AMERICAN > 60
[2018-08-13] MEDS ORDERED: Lactated Ringer's 500 ML IV ONE ×2 (09:38)
[2018-08-13] MEDS ORDERED: Propofol 10 mg/ml Inj (20 ML) ONE (09:39)
[2018-08-13] MEDS ORDERED: Lidocaine Hydrochloride 10 ML INJ ONE (09:59)
[2018-08-13] MEDS ORDERED: Pneumococcal 23-Valent Vaccine IM ONE (10:00)
[2018-08-13] MEDS ORDERED: Potassium Chloride 20 mEq/15 ml LIQ UD PO ONE (11:05)
[2018-08-13] MEDS ORDERED: Peg-Electrolyte Oral Soln 4L (Golytely) PO ONE (11:30)
[2018-08-13] MEDS: Sucralfate 1 gm/10 ml Oral Susp UD PO SCH ×2 (12:28→16:30)
[2018-08-13] MEDS ORDERED: Bisacodyl 5mg EC Tab PO ONE (17:00)
[2018-08-14] MEDS: Piperacill/Tazo 3.375gm in Dex 3.375 GM/50 ML BAG IVPB SCH ×4 (04:07→22:02)
[2018-08-14] MEDS: metroNIDAZOLE IV 500 mg/100 ml 500 MG/100 ML BAG IVPB SCH ×3 (06:32→22:32)
[2018-08-14] MEDS: Sucralfate 1 gm/10 ml Oral Susp UD PO SCH ×3 (07:31→16:45)
[2018-08-14] MEDS ORDERED: Lactated Ringer's 1,000 ML IV ONE (09:30)
[2018-08-14] MEDS ORDERED: Propofol 10 mg/ml Inj (20 ML) ONE (09:32)
[2018-08-14] MEDS ORDERED: Midazolam 2 MG/2 ML VIAL ONE (09:32)
[2018-08-14] MEDS ORDERED: Belladonna-Phenobarbital PO ONE (10:00)
[2018-08-14] MEDS ORDERED: Vancomycin Hydrochloride 250 mg Capsule (Oral) PO ONE (10:30)
--- NOTE | 2018-08-14 22:44 | CP.PCM.PN ---
Subjective - Date & Time of Evaluation Date of Evaluation: 08/14/18 Time of Evaluation: 19:30 - Subjective Subjective: Patient had EGD and colonoscopy: mild gastritis, mild colitis. internal and external hemorrhoids, sigmoid diverticulosis. No more abdominal pain, no diarrhea. Tolerated regular diet well. Objective - Vital Signs/Intake and Output Vital Signs (last 24 hours): Temp Pulse Resp BP Pulse Ox 98.7 F 76 18 118/69 99 08/14/18 21:00 08/14/18 21:00 08/14/18 21:00 08/14/18 21:00 08/14/18 21:00 Intake and Output: 08/14/18 08/15/18 18:59 06:59 Intake Total 1720 Balance 1720 - Medications Medications: Current Medications Acetaminophen (Tylenol 325mg Tab) 650 mg PO Q6 PRN PRN Reason: Headache Last Admin: 08/13/18 02:40 Dose: 650 mg Hydromorphone HCl (Dilaudid) 1 mg IVP Q4H PRN PRN Reason: Pain, moderate (4-7) Last Admin: 08/12/18 02:59 Dose: 1 mg Metronidazole (Flagyl) 500 mg in 100 mls @ 100 mls/hr IVPB Q8H [facility]; Protocol Last Admin: 08/14/18 22:32 Dose: 100 mls/hr Piperacillin Sod/Tazobactam Sod (Zosyn 3.375 Gm Iv Premix) 3.375 gm in 50 mls @ 100 mls/hr IVPB Q6H [facility]; Protocol Last Admin: 08/14/18 22:02 Dose: 100 mls/hr Metoclopramide HCl (Reglan) 5 mg IVP Q6H [facility] Stop: 08/15/18 23:59 Last Admin: 08/14/18 21:15 Dose: 5 mg Pantoprazole Sodium (Protonix Inj) 40 mg IVP DAILY [facility] Last Admin: 08/14/18 09:19 Dose: Not Given Sucralfate (Carafate Oral Susp) 1 gm PO ACTID [facility] Last Admin: 08/14/18 16:45 Dose: 1 gm - Labs Labs: 08/13/18 07:59 08/13/18 07:59 PT 12.7 SECONDS (9.7-12.2) H 08/11/18 17:30 INR 1.2 08/11/18 17:30 APTT 33.0 SECONDS (21-34) 08/11/18 17:30 - Constitutional Appears: Well, No Acute Distress - Head Exam Head Exam: NORMOCEPHALIC - Eye Exam Eye Exam: Normal appearance Pupil Exam: NORMAL ACCOMODATION - ENT Exam ENT Exam: Normal Exam - Neck Exam Neck Exam: Normal Inspection - Respiratory Exam Respiratory Exam: Clear to Ausculation Bilateral, NORMAL BREATHING PATTERN - Cardiovascular Exam Cardiovascular Exam: REGULAR RHYTHM - GI/Abdominal Exam GI & Abdominal Exam: Soft, Normal Bowel Sounds - Rectal Exam Rectal Exam: Deferred - Extremities Exam Extremities Exam: Normal Inspection - Back Exam Back Exam: NORMAL INSPECTION - Neurological Exam Neurological Exam: Alert, Awake, Normal Gait, Oriented x3 - Psychiatric Exam Psychiatric exam: Anxious - Skin Skin Exam: Normal Color, Warm Assessment and Plan (1) Acute diverticulitis Assessment & Plan: Repeat CT scan of the abdomen. Status: Acute (2) Left renal mass Status: Acute (3) Hematuria Status: Acute
[2018-08-14 23:24] VITALS: RESP 20
[2018-08-15 03:10] LABS: SQUAMOUS EPITHIAL 1 /hpf (0-5); URINE BILIRUBIN NEGATIVE (NEGATIVE); URINE BLOOD 1+ (NEGATIVE); URINE CLARITY Clear (Clear); URINE COLOR Straw (YELLOW); URINE GLUCOSE (UA) NORMAL (Normal); URINE LEUKOCYTE ESTERASE NEG Leu/uL (Negative); URINE PROTEIN NEGATIVE (NEGATIVE); URINE UROBILINOGEN NORMAL mg/dL (0.2-1.0)
[2018-08-15] MEDS: Piperacill/Tazo 3.375gm in Dex 3.375 GM/50 ML BAG IVPB SCH ×2 (04:16→11:42)
[2018-08-15] MEDS: metroNIDAZOLE IV 500 mg/100 ml 500 MG/100 ML BAG IVPB SCH ×2 (06:15→14:24)
[2018-08-15] MEDS: Sucralfate 1 gm/10 ml Oral Susp UD PO SCH ×2 (07:57→11:46)
[2018-08-15 08:00] VITALS: PULSE 80
--- NOTE | 2018-08-15 10:36 | PN ---
DATE: 08/15/2018 LOCATION: 369, bed A. SUBJECTIVE: This 63-year-old female seen and examined in rounds without reported significant clinical changes, but intermittent period of reported generalized body itching. No reported active bleeding. No reported shortness of breath, palpitation or chest pain. Most recent lab results for today is still pending and urinalysis appeared to be within normal limits, but rbc are 4+ with small ketone. PHYSICAL EXAMINATION: GENERAL: This is a 63-year-old female post upper and lower endoscopy; awake, alert, oriented. VITAL SIGNS: Afebrile with pulse of 76, respiratory rate 20-22, blood pressure 140/70. HEENT: Showed dry oral mucous membrane. Nonicteric sclerae. LUNGS: Few scattered crepitation. Decreased air entry at bases. HEART: Positive S1 and S2. ABDOMEN: Soft with mild generalized tenderness. No mass or organomegaly. No rebound tenderness or guarding. EXTREMITIES: With mild edematous changes. No clubbing or cyanosis. NEUROLOGIC: No reported new neurological deficits, sensory or motor. IMPRESSION: 1. Exacerbation of peptic ulcer disease. 2. Diverticulosis with left-sided colitis, biopsy is done with evidence of spastic colon by recent colonoscopy. 3. Known history of hypertension with hyperlipidemia. SUGGESTIONS: 1. Agree with your plan. 2. Antireflux measures. 3. Benadryl IV p.r.n. 4. Further recommendation to follow. 5. On record gastric biopsy result reported to be negative for Helicobacter pylori infection. Julio Holt MD
[2018-08-15] MEDS ORDERED: Iodixanol 320 MG/ML 100 ML BOTTLE IV ONE (12:24)
--- NOTE | 2018-08-15 13:51 | CT ---
Date of service: 08/15/2018 PROCEDURE: CT Abdomen with and without intravenous contrast HISTORY: F/U left renal mass COMPARISON: None. TECHNIQUE: Axial images of the abdomen from lung bases to iliac crest with and without intravenous contrast enhancement. Postcontrast images were acquired in the arterial, nephrographic and delayed urographic phases of enhancement. Coronal and sagittal reformats generated. No oral contrast was administered. Intravenous contrast Dose: 100 mL Visipaque 320 Radiation dose: Total exam DLP = 1365.42 mGy-cm. This CT exam was performed using one or more of the following dose reduction techniques: Automated exposure control, adjustment of the mA and/or kV according to patient size, and/or use of iterative reconstruction technique. FINDINGS: LOWER THORAX: Unremarkable. LIVER: Unremarkable. No gross lesion or ductal dilatation. GALLBLADDER AND BILE DUCTS: Unremarkable. PANCREAS: Unremarkable. No gross lesion or ductal dilatation. SPLEEN: Unremarkable. ADRENALS: Unremarkable. No mass. KIDNEYS AND URETERS: There is focal cortical scar in the upper pole left kidney. There is some calcification of the left upper pole parenchyma. There is a cystic irregular structure in the upper pole left kidney unchanged compared to prior examination of 11/14/2012. This may reflect old injury, possibly post infectious or post traumatic. This does not appear to reflect focal caliceal dilatation as there is no enhancement of this structure during the urographic phase of enhancement. Unlikely neoplastic given the absence of interval change since 2012. It measures approximately 3.1 cm in greatest dimension. There is no other renal mass. There is no renal calculus or hydronephrosis. VASCULATURE: Unremarkable. No aortic aneurysm. There is atherosclerotic calcification of the abdominal aorta. BOWEL: Unremarkable. No obstruction. No gross mural thickening. APPENDIX: Normal appendix. PERITONEUM: Unremarkable. No free fluid. No free air. LYMPH NODES: Unremarkable. No enlarged lymph nodes. BONES: No acute fracture. OTHER FINDINGS: None. IMPRESSION: Stable parenchymal scar upper pole left kidney with a cystic structure of uncertain significance but unlikely neoplastic given lack of interval change since 2012. No other significant abnormality.
--- NOTE | 2018-08-15 15:05 | CP.PCM.PN ---
Subjective - Date & Time of Evaluation Date of Evaluation: 08/15/18 Time of Evaluation: 15:00 - Subjective Subjective: Patient has no complaint of abdominal pain, nausea, diarrhea. Repeat U?A 1+ blood. Repeat CT scan of the abdomen with contrast: cyst of the left renal upper pole unchanged since 2012. Objective - Vital Signs/Intake and Output Vital Signs (last 24 hours): Temp Pulse Resp BP Pulse Ox 97.9 F 80 20 128/73 95 08/15/18 07:59 08/15/18 07:59 08/15/18 07:59 08/15/18 07:59 08/15/18 07:59 Intake and Output: 08/15/18 08/15/18 06:59 18:59 Intake Total 410 Balance 410 - Medications Medications: Current Medications Acetaminophen (Tylenol 325mg Tab) 650 mg PO Q6 PRN PRN Reason: Headache Last Admin: 08/13/18 02:40 Dose: 650 mg Hydromorphone HCl (Dilaudid) 1 mg IVP Q4H PRN PRN Reason: Pain, moderate (4-7) Last Admin: 08/12/18 02:59 Dose: 1 mg Metronidazole (Flagyl) 500 mg in 100 mls @ 100 mls/hr IVPB Q8H [facility] OF [facility]; Protocol Last Admin: 08/15/18 14:24 Dose: 100 mls/hr Piperacillin Sod/Tazobactam Sod (Zosyn 3.375 Gm Iv Premix) 3.375 gm in 50 mls @ 100 mls/hr IVPB Q6H [facility]; Protocol Last Admin: 08/15/18 11:42 Dose: 100 mls/hr Metoclopramide HCl (Reglan) 5 mg IVP Q6H [facility] OF [facility] Stop: 08/15/18 23:59 Last Admin: 08/15/18 09:29 Dose: Not Given Pantoprazole Sodium (Protonix Inj) 40 mg IVP DAILY [facility] Last Admin: 08/15/18 09:30 Dose: 40 mg Sucralfate (Carafate Oral Susp) 1 gm PO ACTID [facility] OF [facility] Last Admin: 08/15/18 11:46 Dose: 1 gm - Labs Labs: 08/13/18 07:59 08/13/18 07:59 PT 12.7 SECONDS (9.7-12.2) H 04/23/19 17:30 INR 1.2 08/11/18 17:30 APTT 33.0 SECONDS (21-34) 08/11/18 17:30 - Constitutional Appears: Well, No Acute Distress - Head Exam Head Exam: NORMAL INSPECTION - Eye Exam Eye Exam: Normal appearance Pupil Exam: NORMAL ACCOMODATION - ENT Exam ENT Exam: Normal Exam - Neck Exam Neck Exam: Normal Inspection - Respiratory Exam Respiratory Exam: Clear to Ausculation Bilateral, NORMAL BREATHING PATTERN - Cardiovascular Exam Cardiovascular Exam: REGULAR RHYTHM - GI/Abdominal Exam GI & Abdominal Exam: Soft, Normal Bowel Sounds Additional comments: No tenderness. - Rectal Exam Rectal Exam: Deferred - Exam Exam: NORMAL INSPECTION - Extremities Exam Extremities Exam: Normal Inspection - Back Exam Back Exam: NORMAL INSPECTION - Neurological Exam Neurological Exam: Alert, Awake, Normal Gait, Oriented x3 - Psychiatric Exam Psychiatric exam: Anxious - Skin Skin Exam: Dry, Intact, Normal Color, Warm Assessment and Plan (1) Acute diverticulitis Assessment & Plan: To discharge home on Cipro and Flagyl PO for 1 week. Status: Resolved (2) Left renal mass Assessment & Plan: Mass unchanged from 2013. Status: Acute (3) Hematuria Assessment & Plan: improving. Status: Acute
[2018-08-15 15:59] VITALS: TEMP 98.6; O2SAT 96
[2018-08-15 16:38] VITALS: BP 132/80
== END 2018-08-15 16:30 | disposition home or self-care (01) | DRG 377 ==
LOC: C.ER 17:59 → C.9E 22:39 → C.3T 08-11 01:26 → OBSVTOIN 08-11 13:48
PROVIDERS: ADMIT Internal Medicine Cardiovascular Disease; ATTEND Internal Medicine Cardiovascular Disease
PROC: 0DB68ZX Excision of Stomach, Via Natural or Artificial Opening Endoscopic, Diagnostic (ICD-10-PCS; principal; 2018-08-13 09:42)
PROC: 0DBK8ZX Excision of Ascending Colon, Via Natural or Artificial Opening Endoscopic, Diagnostic (ICD-10-PCS; 2018-08-14)
PROC: 0DBM8ZX Excision of Descending Colon, Via Natural or Artificial Opening Endoscopic, Diagnostic (ICD-10-PCS; 2018-08-14)
DX: K25.0 Acute gastric ulcer with hemorrhage (principal); K57.32 Diverticulitis of large intestine without perforation or abscess without bleeding; K51.50 Left sided colitis without complications; N15.1 Renal and perinephric abscess; E46 Unspecified protein-calorie malnutrition; K44.9 Diaphragmatic hernia without obstruction or gangrene; K64.8 Other hemorrhoids; K64.4 Residual hemorrhoidal skin tags; I10 Essential (primary) hypertension; K58.9 Irritable bowel syndrome, unspecified; E78.5 Hyperlipidemia, unspecified; E78.00 Pure hypercholesterolemia, unspecified; N28.89 Other specified disorders of kidney and ureter; Z87.11 Personal history of peptic ulcer disease; Z90.49 Acquired absence of other specified parts of digestive tract

== ENCOUNTER 2018-08-15 21:56 | Emergency (ER) | payer OTHER ==
[2018-08-15 22:03] VITALS: TEMP 98
--- NOTE | 2018-08-15 22:21 | C.PDOC ---
History Of Present Illness 63 year old female presents to the ED c/o facial redness, itching and swelling that started last night. Patient reports symptoms started after taking 1 dose of PO Vancomycin while at [facility]. Patient was discharged, however reports symptoms then worsened at home. She denies fever, chills, sensation of throat closing up, lip/tongue swelling, wheezing, SOB. Time Seen by Provider: 08/15/18 22:05 Chief Complaint (Nursing): Allergic Reaction History Per: Patient History/Exam Limitations: no limitations Onset/Duration Of Symptoms: Days (1) Current Symptoms Are (Timing): Still Present Possible Cause: Medication Associated Symptoms: Skin Rash Severity: Moderate Additional History Per: Patient Past Medical History Reviewed: Historical Data, Nursing Documentation, Vital Signs Vital Signs: Last Vital Signs Temp 98.0 F 08/15/18 22:02 Pulse 94 H 08/15/18 22:02 Resp 18 08/15/18 22:02 BP 80/56 L 08/15/18 22:02 Pulse Ox 99 08/15/18 22:02 - Medical History PMH: HTN, Hypercholesterolemia Surgical History: No Surg Hx Family History: States: No Known Family Hx - Social History Hx Alcohol Use: No Hx Substance Use: No - Immunization History Hx Tetanus Toxoid Vaccination: Yes Hx Influenza Vaccination: Yes Hx Pneumococcal Vaccination: No Review Of Systems Constitutional: Negative for: Fever, Chills ENT: Negative for: Mouth Swelling, Throat Swelling Respiratory: Negative for: Cough, Shortness of Breath, Wheezing Gastrointestinal: Negative for: Nausea, Vomiting Skin: Positive for: Rash Neurological: Negative for: Weakness, Numbness, Headache, Dizziness Physical Exam - Physical Exam Appears: Well, Non-toxic, No Acute Distress, Other (speaking in full sentences ) Skin: Normal Color, Warm, Dry, Rash (diffuse urticaria to face) Head: Normacephalic, Swelling (moderate bilateral periorbital swelling) Eye(s): bilateral: Normal Inspection, PERRL, EOMI Nose: Normal Oral Mucosa: Moist Tongue: Normal Appearing, No Swelling Lips: Normal Appearing, No Swelling Throat: Normal, No Erythema, No Exudate, No Drooling, Other (uvula midline and normal in appearance ) Neck: Normal ROM, Supple Chest: Symmetrical Cardiovascular: Rhythm Regular Respiratory: Normal Breath Sounds, No Rales, No Rhonchi, No Stridor, No Wheezing, Other (speaking full sentences) Extremity: Normal ROM, No Tenderness, No Swelling Neurological/Psych: Oriented x3 Gait: Steady ED Course And Treatment O2 Sat by Pulse Oximetry: 99 (ON RA) Pulse Ox Interpretation: Normal Progress Note: Patient given IV solumedrol, IV pepcid, IV benadryl, IV NS bolus given. Reevaluation Time: 00:45 Reassessment Condition: Improved (On reassessment, patient is resting comfortably and states she feels better. Urticaria and swelling have decreased, and she has no SOB, drooling/stridor, sensation of throat closing. Patient instructed to avoid Vancomycin in the future. She is currently taking PO Cipro and Flagyl for diverticulitis, and has been on them for several days without issue, so she was instructed to continue those meds. Rxs for prednisone and claritin given. She understands she should return to ED if symptoms worsen, otherwise she should follow up with PMD in 1-2 days.) Disposition Counseled Patient/Family Regarding: Studies Performed, Diagnosis, Need For Followup, Rx Given - Disposition Referrals: Jerry Ponce MD [Staff Provider] - Julio Ferrari [Staff Provider] - Disposition: HOME/ ROUTINE Disposition Time: 00:45 Condition: STABLE Additional Instructions: FOLLOW UP WITH YOUR DOCTOR IN 1-2 DAYS USE MEDICATIONS DIRECTED DO NOT TAKE VANCOMYCIN IN THE FUTURE RETURN TO ER IF SYMPTOMS WORSEN Prescriptions: Loratadine [Claritin] 10 mg PO DAILY PRN #30 tab PRN Reason: Itching / Pruritus predniSONE [predniSONE Tab] 40 mg PO DAILY #6 tab Instructions: Hivaram (DC) Forms: GetThis (Hebrew) Print Language: AMHARIC - Clinical Impression Clinical Impression: Allergic urticaria - Scribe Statement The provider has reviewed the documentation as recorded by the Scribe Edwin Flores All medical record entries made by the Scribe were at my direction and personally dictated by me. I have reviewed the chart and agree that the record accurately reflects my personal performance of the history, physical exam, medical decision making, and the department course for this patient. I have also personally directed, reviewed, and agree with the discharge instructions and disposition.
[2018-08-15] MEDS ORDERED: DiphenhydrAMINE 50 mg/ml Inj IVP STA (22:24)
[2018-08-15] MEDS ORDERED: Sodium Chloride 0.9% 500 ML IV ONE (22:25)
[2018-08-15] MEDS ORDERED: DiphenhydrAMINE 50 mg/ml Inj ONE (22:33)
[2018-08-15] MEDS ORDERED: Sodium Chloride 0.9% 1,000 ML ONE (22:34)
[2018-08-15 23:26] VITALS: PULSE 90; RESP 14
[2018-08-16 00:04] VITALS: BP 164/90
[2018-08-16 00:47] VITALS: O2SAT 99
== END 2018-08-16 00:59 | disposition home or self-care (01) ==
LOC: C.ER 21:56
DX: L50.0 Allergic urticaria (principal); I10 Essential (primary) hypertension; E78.00 Pure hypercholesterolemia, unspecified
CPT/HCPCS: 96374; 96375; 99284; J1200; J2930; J7040